=== PATIENT | female | born 1960 | race Caucasian/White ===

== ENCOUNTER 2018-02-11 18:55 | Emergency (ER) | payer BC, SELFPAY ==
[2018-02-11 19:01] VITALS: BP 133/80; PULSE 80; RESP 20; TEMP 36.7; O2SAT 99
[2018-02-11] MEDS: ONDANSETRON 4 MG/2 ML INJ IV (19:13)
[2018-02-11] MEDS: KETOROLAC 60 MG/2 ML VIAL 15 MG IV (19:13)
[2018-02-11 19:24] LABS: Hemoglobin 13.8 g/dL (12.0-16.0); Mean Corpuscular HGB Conc 33.7 % (30-36); Mean Corpuscular Hemoglobin 30.3 PG (26-34); Platelet Count 269 X10^3/uL (150-400); Red Blood Cell Count 4.56 X10^6/uL (4.0-5.2); Red Cell Distribution Width 13.1 % (11.6-14.8); White Blood Cell Count 12.2 X10^3/uL (4.5-11.0)
[2018-02-11 19:29] LABS: INR 1.3 (0.9-1.3); Prothrombin Time 13.6 SECONDS (10.1-12.7)
[2018-02-11 19:34] LABS: Alanine Aminotransferase 32 IU/L (9-52); Albumin 4.8 g/dL (3.5-5.0); Albumin Globulin Ratio 1.6 (1.0-2.8); Alkaline Phosphatase 72 U/L (38-126); Aspartate Aminotransferase 28 IU/L (14-36); BUN Creatinine Ratio 21.1 (6-22); Bilirubin Total 1.2 mg/dL (0.2-1.3); Blood Urea Nitrogen 19 mg/dL (7-17); Calcium 9.7 mg/dL (8.4-10.2); Carbon Dioxide 29 mmol/L (22-32); Chloride 102 mmol/L (98-107); Estimated Glomerular Filt Rate > 60.0 mL/min (>60); Glucose 120 mg/dL (70-100); HEMOLYSIS < 15 (0-50); Lipase 122 U/L (23-300); Potassium 4.4 mmol/L (3.4-5.1); Sodium 142 mmol/L (137-145); Total Protein 7.8 g/dL (6.3-8.2)
--- NOTE | 2018-02-11 19:52 | DI.CT.S_ITS ---
PROCEDURE: CT KIDNEY URETER BLADDER (KUB) INDICATIONS: R flank pain, hx stones TECHNIQUE: Noncontrast 5 mm thick sections acquired from the diaphragms to the symphysis. 5 mm thick coronal and sagittal reformats were then performed. For radiation dose reduction, the following was used: automated exposure control, adjustment of mA and/or kV according to patient size. COMPARISON: None. FINDINGS: Image quality: Excellent. Lung bases: Lung bases are clear. Heart size is normal. Urinary system: Both kidneys are normal in size. 5 mm stone is noted in the right UVJ causing moderate right-sided hydroureteronephrosis. Small amount of fluid noted adjacent to the right renal pelvis compatible with forniceal rupture. 1 mm nonobstructing stone is noted in the upper pole of the right kidney. 4 mm nonobstructing stone noted in the upper pole of left kidney. 3 mm nonobstructing stone in lower pole of the left kidney. No left-sided hydronephrosis. Bladder wall thickness is normal; no calcified bladder stones. Other solid organs: Liver is normal in size. Gallbladder is within normal limits. Pancreas is normal in contours. Spleen is normal in size. Punctate calcification noted in the spleen compatible with sequela prior granulomatous disease. No adrenal nodules. Peritoneum and bowel: Small hiatal hernia. Unenhanced bowel loops demonstrate normal wall thickness and caliber. Multiple diverticuli noted in the colon without evidence of diverticulitis. No free fluid or air. The appendix is not definitely visualized, however no free fluid or inflammatory changes are noted adjacent to the cecum. Nodes and vessels: No retroperitoneal or mesenteric adenopathy by size criteria. Aorta and inferior vena cava are normal in caliber. Abdominal wall: No ventral hernias. Pelvis: No free pelvic fluid. No inguinal hernias or adenopathy. Bones: No suspicious bony lesions. No vertebral body compression fractures. Spine degenerative disease and facet arthropathy noted. IMPRESSION: 1. 5 mm stone in the right UVJ causing moderate right-sided hydronephrosis. Small amount of fluid noted adjacent to the right renal pelvis concerning for forniceal rupture. 2. Nonobstructing left renal stones. 3. Colonic diverticulosis without evidence of diverticulitis. Dictated by: Angelique Amaral MD, PhD on 02/11/2018 at 20:23 Approved by: Angelique Amaral MD, PhD on 02/11/2018 at 20:29
[2018-02-11 19:53] LABS: Neutrophils Absolute Manual 9882 /uL (3000-5900); RBC Morphology Normal Morphology; Total Cells Counted 100
[2018-02-11] MEDS: SODIUM CHLORIDE 0.9% 1,000 ML 1000 ML IV (19:57)
[2018-02-11] MEDS: CEFTRIAXONE 1 GM/50 ML FROZ.PIGGY IV (20:07)
[2018-02-11 20:30] VITALS: BP 120/78; PULSE 77; RESP 20; O2SAT 98
[2018-02-11 20:32] LABS: Procalcitonin < 0.05 ng/mL (<0.5)
[2018-02-11] MEDS: SODIUM CHLORIDE 0.9% IV (20:34)
[2018-02-11] MEDS: LIDOCAINE 2% IV (20:34)
--- NOTE | 2018-02-11 20:34 | ED_ITS ---
HPI - Female Genitourinary General Chief complaint: Urogenital-Female Stated complaint: THINKS KIDNEY STONE Time Seen by Provider: 02/11/18 19:18 Source: patient and family Mode of arrival: ambulatory Limitations: no limitations History of Present Illness HPI Narrative: 57-year-old female with a history of kidney stones presents with her in the chief complaint of severe right flank pain that is sudden- onset since earlier today. She denies provocation or palliation but admits that does radiate around her flank a bit. She does have a subjective fever and has had shaking chills. She states it feels quite similar to prior kidney stones. She admits to nausea and 1 episode of vomiting but denies any change in bowel habits such as constipation or diarrhea. She states it hurts to urinate and she has been urinating more frequently MD Complaint: dysuria and UTI Onset (ago): hour(s) Female Urogenital Radiation: R Flank Severity: severe Quality: Burning Duration: intermittent Relieving factors: none Exacerbating factors: none Urinary symptoms: Difficulty Urinating, Dysuria and Flank Pain Related Data Home Medications Medication Instructions Recorded Confirmed No Known Home Medications 02/11/18 02/11/18 Allergies Allergy/AdvReac Type Severity Reaction Status Date / Time No Known Drug Allergies Allergy Verified 02/11/18 19:03 Review of Systems Review of Systems All systems reviewed & are unremarkable except as noted in HPI and below Constitutional Reports chills, Reports fever(s), Denies lethargy and Denies weakness Eyes Denies change in vision, Denies eye discharge, Denies irritation and Denies loss of vision ENT Ears, Nose, Mouth, and Throat: Denies change in voice, Denies neck pain and Denies sore throat Cardiovascular Denies chest pain, Denies irregular heart rhythm, Denies lightheadedness, Denies palpitations, Denies dyspnea, Denies dyspnea on exertion and Denies orthopnea Respiratory Denies cough, Denies dyspnea, Denies dyspnea on exertion and Denies wheezing Gastrointestinal Gastrointestinal: Denies abdominal pain, Denies change in bowel habits, Denies diarrhea, Denies nausea and Denies vomiting Genitourinary Reports hematuria, Reports flank pain, Denies urinary incontinence and Reports urinary urgency Musculoskeletal Denies neck pain Integumentary/Breasts Denies pruritus, Denies erythema, Denies rash and Denies wounds Neurologic Denies confusion, Denies loss of vision and Denies weakness Psychiatric Denies anxiety, Denies confusion, Denies depression, Denies homicidal ideation and Denies suicidal ideation Endocrine Denies palpitations Hematologic/Lymphatic Denies easy bruising Allergic/Immunologic Denies wheezing PFSH Surgical History History of lithotripsy (Acute) Social History Smoking Status: Never smoker Exam Narrative Exam Narrative: GENERAL: Pleasant 57-year-old female obviously quite uncomfortable, unable to sit still in clutching her right flank HEAD: Atraumatic. Normocephalic. No temporal or scalp tenderness. EYES: Pupils equal round and reactive. Extraocular motions intact. No scleral icterus. No injection or drainage. ENT: Nose without bleeding, purulent drainage or septal hematoma. Throat without erythema, tonsillar hypertrophy or exudate. Uvula midline. Airway patent. NECK: Trachea midline. No JVD or lymphadenopathy. Supple, nontender, no meningeal signs. CARDIOVASCULAR: Regular rate and rhythm without murmurs, gallops, or rubs. RESPIRATORY: Clear to auscultation. Breath sounds equal bilaterally. No wheezes , rales, or rhonchi. GASTROINTESTINAL: Abdomen soft, non-tender, nondistended. No hepato-splenomegaly , or palpable masses. No guarding. EXTREMITIES: No clubbing, cyanosis, or edema. No joint tenderness, effusion, or edema noted. BACK: Nontender without deformity or crepitance. No flank tenderness. NEURO: AOx3. SKIN: No rash or erythema. Initial Vital Signs Initial Vital Signs: Vital Signs Temperature 98.1 F 02/11/18 19:01 Pulse Rate 80 02/11/18 19:01 Respiratory Rate 20 02/11/18 19:01 Blood Pressure 133/80 02/11/18 19:01 Pulse Oximetry 99 02/11/18 19:01 Scores qSOFA Altered Mental Status (GCS <15): No Respiratory rate greater than/equal to 22: No Systolic blood pressure less than or equal to 100: No qSOFA Total: 0 0-1 Not High Risk 1-3 High risk Course Orders Ordered: ED Orders 02/11/18 19:10 Complete Blood Count MAN DIFF Stat Comprehensive Metabolic Panel Stat Lipase Stat Procalcitonin Stat Prothrombin Time INR Stat 02/11/18 19:52 CT kidney ureter bladder (KUB) Stat 02/11/18 20:10 Lactate (Lactic Acid) Stat 02/11/18 21:10 Blood Culture Stat 02/11/18 22:20 Urinalysis and Microscopic Stat Urine Culture Stat Discontinued Medications Hydromorphone HCl (Dilaudid) 0.5 mg IV NOW ONE Stop: 02/11/18 21:25 Last Admin: 02/11/18 21:30 Dose: 0.5 mg Hydromorphone HCl (Dilaudid) 1 mg IV NOW ONE Stop: 02/11/18 22:07 Last Admin: 02/11/18 22:07 Dose: 1 mg Sodium Chloride (Normal Saline 0.9%) 1,000 mls @ 1,000 mls/hr IV BOLUS ONE Stop: 02/11/18 20:12 Last Admin: 02/11/18 19:17 Dose: Lidocaine HCl 6.4 ml/ Sodium (Chloride) 56.4 mls @ 338.4 mls/hr IV NOW ONE Stop: 02/11/18 19:51 Last Infusion: 02/11/18 20:51 Dose: 0 mls/hr Admin: 02/11/18 20:34 Dose: 338.4 mls/hr Sodium Chloride (Normal Saline 0.9%) 1,000 mls @ 1,000 mls/hr IV BOLUS ONE Stop: 02/11/18 20:49 Last Infusion: 02/11/18 21:43 Dose: 0 mls/hr Infusion: 02/11/18 20:39 Dose: 1,000 mls/hr Infusion: 02/11/18 20:16 Dose: 0 mls/hr Admin: 02/11/18 19:57 Dose: 1,000 mls/hr Ceftriaxone Sodium/Dextrose (Rocephin) 1 gm in 50 mls @ 100 mls/hr IV NOW ONE Stop: 02/11/18 20:19 Last Infusion: 02/11/18 20:39 Dose: 0 mls/hr Admin: 02/11/18 20:07 Dose: 100 mls/hr Ketorolac Tromethamine (Toradol) 15 mg IV NOW ONE Stop: 02/11/18 19:12 Last Admin: 02/11/18 19:13 Dose: 15 mg Ondansetron HCl (Zofran) 4 mg IV NOW ONE Stop: 02/11/18 19:12 Last Admin: 02/11/18 19:13 Dose: 4 mg Reevaluation(s) Reevaluation #1: Minimal relief after Toradol, will order lidocaine drip Reevaluation #2: Minimal relief after lidocaine drip will advance to Dilaudid Consultations Consultation #1: Dr. Cheek ( Urology) readily accepts this patient in transfer Vital Signs - 8 hr 02/11/18 19:01 02/11/18 20:30 02/11/18 21:09 Temperature 98.1 F Pulse Rate 80 77 72 Respiratory Rate 20 20 21 Blood Pressure 133/80 Blood Pressure [Right Arm] 120/78 135/79 Pulse Oximetry 99 98 100 02/11/18 21:30 02/11/18 22:35 Temperature Pulse Rate 68 69 Respiratory Rate 20 11 L Blood Pressure Blood Pressure [Right Arm] 127/77 120/64 Pulse Oximetry 98 99 MDM - Female Genitourinary Differential Diagnosis Likely urinary tract infection, ovarian cyst, ruptured ovarian cyst, cystitis and other Medical Records Attestation: I reviewed the patient's medical records. Lab Data Attestation: I reviewed the patient's lab results. Result diagrams: 02/11/18 19:10 02/11/18 19:10 Lab Results 02/11/18 02/11/18 02/11/18 Range/Units 19:10 19:10 19:10 WBC 12.2 H (4.5-11.0) X10^3/uL RBC 4.56 (4.0-5.2) X10^6/uL Hgb 13.8 (12.0-16.0) g/dL Hct 41.0 (36-46) % MCV 90.0 (80-100) fL MCH 30.3 (26-34) PG MCHC 33.7 (30-36) % RDW 13.1 (11.6-14.8) % Plt Count 269 (150-400) X10^3/uL Total Counted 100 Seg Neutrophils % 81.0 H (38-70) % Lymphocytes % (Manual) 13.0 L (25-45) % Monocytes % (Manual) 5.0 (2-11) % Eosinophils % (Manual) 1.0 L (2-4) % Neutrophils # (Manual) 9882 H (0853-5578) /uL RBC Morphology Normal morphology PT 13.6 H (10.1-12.7) SECONDS INR 1.3 (0.9-1.3) Sodium 142 (137-145) mmol/L Potassium 4.4 (3.4-5.1) mmol/L Chloride 102 (98-107) mmol/L Carbon Dioxide 29 (22-32) mmol/L BUN 19 H (7-17) mg/dL Creatinine 0.90 (0.52-1.04) mg/dL Estimated GFR > 60.0 (>60) mL/min BUN/Creatinine Ratio 21.1 (6-22) Glucose 120 H (70-100) mg/dL Lactate (0.7-2.1) mmol/L Calcium 9.7 (8.4-10.2) mg/dL Total Bilirubin 1.2 (0.2-1.3) mg/dL AST 28 (14-36) IU/L ALT 32 (9-52) IU/L Alkaline Phosphatase 72 (38-126) U/L Total Protein 7.8 (6.3-8.2) g/dL Albumin 4.8 (3.5-5.0) g/dL Globulin 3.0 (1.7-4.1) g/dL Albumin/Globulin Ratio 1.6 (1.0-2.8) Lipase 122 (23-300) U/L Procalcitonin (<0.5) ng/mL Urine Color Urine Appearance Urine pH (4.5-8.0) Ur Specific [place] (1.000-1.035) Urine Protein (Negative) Urine Glucose (UA) (Normal) g/dL Urine Ketones (NEGATIVE) Urine Occult Blood (Negative) Urine Nitrate (Negative) Urine Bilirubin (NEGATIVE) Urine Urobilinogen (0.2) E.U./dL Ur Leukocyte Esterase (NEGATIVE) Urine RBC (0-5/HPF) Urine WBC (0-5/HPF) Ur Squamous Epith Cells Urine Bacteria (None) Ur Culture Indicated? Micro UA Comment 02/11/18 02/11/18 02/11/18 Range/Units 19:10 20:10 22:20 WBC (4.5-11.0) X10^3/uL RBC (4.0-5.2) X10^6/uL Hgb (12.0-16.0) g/dL Hct (36-46) % MCV (80-100) fL MCH (26-34) PG MCHC (30-36) % RDW (11.6-14.8) % Plt Count (150-400) X10^3/uL Total Counted Seg Neutrophils % (38-70) % Lymphocytes % (Manual) (25-45) % Monocytes % (Manual) (2-11) % Eosinophils % (Manual) (2-4) % Neutrophils # (Manual) (6148-2531) /uL RBC Morphology PT (10.1-12.7) SECONDS INR (0.9-1.3) Sodium (137-145) mmol/L Potassium (3.4-5.1) mmol/L Chloride (98-107) mmol/L Carbon Dioxide (22-32) mmol/L BUN (7-17) mg/dL Creatinine (0.52-1.04) mg/dL Estimated GFR (>60) mL/min BUN/Creatinine Ratio (6-22) Glucose (70-100) mg/dL Lactate 1.0 (0.7-2.1) mmol/L Calcium (8.4-10.2) mg/dL Total Bilirubin (0.2-1.3) mg/dL AST (14-36) IU/L ALT (9-52) IU/L Alkaline Phosphatase (38-126) U/L Total Protein (6.3-8.2) g/dL Albumin (3.5-5.0) g/dL Globulin (1.7-4.1) g/dL Albumin/Globulin Ratio (1.0-2.8) Lipase (23-300) U/L Procalcitonin < 0.05 (<0.5) ng/mL Urine Color Yellow Urine Appearance Clear Urine pH 7.0 (4.5-8.0) Ur Specific [place] 1.015 (1.000-1.035) Urine Protein Trace H (Negative) Urine Glucose (UA) Negative (Normal) g/dL Urine Ketones 3+ H (NEGATIVE) Urine Occult Blood 2+ H (Negative) Urine Nitrate Negative (Negative) Urine Bilirubin Negative (NEGATIVE) Urine Urobilinogen 0.2 (0.2) E.U./dL Ur Leukocyte Esterase 2+ H (NEGATIVE) Urine RBC 5-10/hpf H (0-5/HPF) Urine WBC 10-30/hpf H (0-5/HPF) Ur Squamous Epith Cells 1-5 /hpf Urine Bacteria Few (2-10) H (None) Ur Culture Indicated? Specimen cultured Micro UA Comment Not Reportable Imaging Data CT scan - abdomen: Radiologist's impression: PROCEDURE: CT KIDNEY URETER BLADDER (KUB) INDICATIONS: R flank pain, hx stones TECHNIQUE: Noncontrast 5 mm thick sections acquired from the diaphragms to the symphysis. 5 mm thick coronal and sagittal reformats were then performed. For radiation dose reduction, the following was used: automated exposure control, adjustment of mA and/or kV according to patient size. COMPARISON: None. FINDINGS: Image quality: Excellent. Lung bases: Lung bases are clear. Heart size is normal. Urinary system: Both kidneys are normal in size. 5 mm stone is noted in the right UVJ causing moderate right-sided hydroureteronephrosis. Small amount of fluid noted adjacent to the right renal pelvis compatible with forniceal rupture. 1 mm nonobstructing stone is noted in the upper pole of the right kidney. 4 mm nonobstructing stone noted in the upper pole of left kidney. 3 mm nonobstructing stone in lower pole of the left kidney. No left-sided hydronephrosis. Bladder wall thickness is normal; no calcified bladder stones. Other solid organs: Liver is normal in size. Gallbladder is within normal limits. Pancreas is normal in contours. Spleen is normal in size. Punctate calcification noted in the spleen compatible with sequela prior granulomatous disease. No adrenal nodules. Peritoneum and bowel: Small hiatal hernia. Unenhanced bowel loops demonstrate normal wall thickness and caliber. Multiple diverticuli noted in the colon without evidence of diverticulitis. No free fluid or air. The appendix is not definitely visualized , however no free fluid or inflammatory changes are noted adjacent to the cecum. Nodes and vessels: No retroperitoneal or mesenteric adenopathy by size criteria. Aorta and inferior vena cava are normal in caliber. Abdominal wall: No ventral hernias. Pelvis: No free pelvic fluid. No inguinal hernias or adenopathy. Bones: No suspicious bony lesions. No vertebral body compression fractures. Spine degenerative disease and facet arthropathy noted. IMPRESSION: 1. 5 mm stone in the right UVJ causing moderate right-sided hydronephrosis. Small amount of fluid noted adjacent to the right renal pelvis concerning for forniceal rupture. 2. Nonobstructing left renal stones. 3. Colonic diverticulosis without evidence of diverticulitis. Dictated by: Angelique Amaral MD, PhD on 02/11/2018 at 20:23 Approved by: Angelique Amaral MD, PhD on 02/11/2018 at 20:29 [facility] Narrative Medical decision making narrative: 57-year-old female with history of kidney stones presents with right flank pain as well as fever and shaking chills and UTI symptoms. She states it feels like prior kidney stones. She experienced minimal relief after Toradol and lidocaine drip and finally had some control after a few doses of Dilaudid. She has a slight elevation in her white blood cells and reported shaking chills suggestive of bacteremia in the setting of an obstructive uropathy as evidence by CT KUB noting a 5 mm stone at the UVJ with hydro. Patient will require hospitalization for stabilization and further evaluation of her condition with the possibility of urologic intervention. We thank the [facility] urology service and Dr. Cheek for their willingness to help care for this patient Discharge Plan Departure Patient Disposition: [facility] Clinical Impression: Acute unilateral obstructive uropathy, Acute UTI, Bacteremia Prescriptions: No Action No Known Home Medications RF: 0
[2018-02-11 21:09] VITALS: BP 135/79; PULSE 72; RESP 21; O2SAT 100
[2018-02-11 21:30] VITALS: BP 127/77; PULSE 68; RESP 20; O2SAT 98
[2018-02-11] MEDS: HYDROMORPHONE 1 MG INJ 0.5 MG IV (21:30)
[2018-02-11] MEDS: HYDROMORPHONE 1 MG INJ IV (22:07)
[2018-02-11 22:35] VITALS: BP 120/64; PULSE 69; RESP 11; O2SAT 99
[2018-02-11 22:36] LABS: Appearance Urine UA CLEAR; Bilirubin Urine UA NEGATIVE (NEGATIVE); Color Urine UA YELLOW; Glucose Urine UA NEGATIVE (Normal); Ketones Urine UA 3+ (NEGATIVE); Leukocyte Esterase Urine UA 2+ (NEGATIVE); Nitrite Urine UA Negative (Negative); Occult Blood Urine UA 2+ (Negative); Protein Urine UA TRACE (Negative); Specific Gravity Urine UA 1.015 (1.000-1.035); Urobilinogen Urine UA 0.2 E.U./dL (0.2)
[2018-02-11 22:44] LABS: Bacteria Urine Few (2-10); Culture Indicated Urine Specimen Cultured; RBC Urine 5-10/HPF (0-5/HPF); Squamous Epithelial Cell Urine 1-5 /HPF; WBC Urine 10-30/HPF (0-5/HPF)
[2018-02-12 01:16] VITALS: BP 105/69; PULSE 68; RESP 17; O2SAT 99
== END 2018-02-12 01:00 | disposition short-term general hospital (02) ==
PROVIDERS: Emergency Provider Emergency Medicine
DX: N13.9 Obstructive and reflux uropathy, unspecified (principal); N39.0 Urinary tract infection, site not specified; R78.81 Bacteremia
CPT/HCPCS: 36415; 36591; 74176; 80053; 81001; 83605; 83690; 84145; 85025; 85610; 87040; 87086; 96361; 96365; 96375; 96376; 99284; 99285; J1170; J1885; J2405